=== PATIENT | female | born 1940 | race Caucasian/White ===

== ENCOUNTER 2017-05-07 05:16 | Day surgery (SDC) | payer MEDICARE, OTHER ==
[2017-05-06 16:02] LABS: HEMATOCRIT 40.6 % (36.0-48.0); MCH 32.9 pg (26.0-34.0); MCHC 34.5 g/dL (31.0-37.0); MCV 95.3 fL (80.0-100.0); MEAN PLATELET VOLUME 10.1 fL (7.4-10.4); RBC 4.26 10x6/uL (4.00-5.40); RDW 12.8 % (11.5-14.5); WBC 6.9 10x3/uL (4.8-10.8)
[~2017-05-07] VITALS: Ht 160 cm; Wt 59.0 kg
--- NOTE | ~2017-05-07 | OP ---
PATIENT NAME: ЮЛИЯ MARQUEZ MEDICAL RECORD: [id number] :41 LOCATION:D.OPS ADMISSION DATE: SURGEON: ALANA QUIROZ DPM DATE OF OPERATION: 05/07/2017 PREOPERATIVE DIAGNOSES: 1. Rupture of right anterior tibialis tendon. 2. Plantar plate rupture, right third metatarsophalangeal joint. 3. Hammertoe deformity, right fourth digit. POSTOPERATIVE DIAGNOSES: 1. Rupture of right anterior tibialis tendon. 2. Plantar plate rupture, right third metatarsophalangeal joint. 3. Hammertoe deformity, right fourth digit. PROCEDURES: 1. Repair of right anterior tibialis tendon. 2. Yulissa osteotomy, right third metatarsal. 3. Plantar plate repair, right third MPJ. 4. PIPJ fusion, right fourth digit. ANESTHESIA: Local with IV sedation utilizing lidocaine and Marcaine plain. The patient was also given a preoperative popliteal block per the anesthesia department. HEMOSTASIS: Right thigh tourniquet at 350 mmHg. PREOPERATIVE DETAILS: The patient was taken to the OR, placed on the operating table in a supine position. This was followed by induction of general anesthesia and infiltration of 5 cc of lidocaine and Marcaine in the saphenous nerve at the medial right ankle. The right extremity was then prepped and draped in usual aseptic technique followed by exsanguination of extremity and inflation of tourniquet. PROCEDURE NUMBER 1: Repair of right anterior tibialis tendon. A 15-blade was used to create an incision from the anterior ankle just superior to that distally coursing along the anterior tibialis tendon at its insertion at the medial cuneiform. The incision was deepened down through subcutaneous tissue. It was noted right away that there was a lot of bleeding in the subcutaneous space. The tendon sheath was pierced. There was noted to be significant bleeding in that area as well. The tendon sheath was opened up. The distal stump of the anterior tibialis was just proximal to the ankle joint. There was no distal stump noted. It was deemed necessary at this time to do a free graft from the split tendon graft from the existing anterior tibialis tendon. Therefore, harvested graft was taken from the anterior tibialis. It was then sutured to the end of the distal stump of the ruptured tendon. The distal aspect of the now repaired tendon was then prepared and using a tenodesis screw, was placed into the medial cuneiform from dorsal to plantar, noting excellent repair of the ends of the graft and the distal aspect of the ATF were sutured together using a Nelida type suture and augmented with 2-0 Vicryl. Once the repair was complete, it was noted to be very strong. The tendon sheath was then repaired. The subcutaneous tissue was reapproximated with 4-0 Rapide and the skin was closed with skin melissa. PROCEDURE NUMBER 2: Yulissa osteotomy, right third MPJ. A 15-blade was used to OPERATIVE REPORT [id number] ЮЛИЯ MARQUEZ create a 3-cm curvilinear incision over the dorsal aspect of the right third MPJ. The incision deepened down through subcutaneous tissue to the extensor longus tendon, which was split and freed exposing the third MPJ. A McGlamry scoop elevator was then used to free the plantar structures of the third MPJ. Sagittal saw was then used to create a Yulissa osteotomy from dorsal distal to plantar proximal, pushing the distal fragment proximally and temporarily fixating it to give us access to the plantar plate. PROCEDURE NUMBER 3 AND 4: Plantar plate repair, right third MPJ. Once visualized, there was noted to be some attenuation and stretching of the third MPJ plantar plate. The plantar plate was freed from the base of the proximal phalanx of the third digit. A scorpion passer was then used to pass FiberWire up through the plantar plate incorporating the flexor tendon. Two small drill holes were made in the base of proximal phalanx of the third digit. The FiberWire was then passed up through the drill holes. The traction was removed from the third metatarsal and base of proximal phalanx and the Yulissa osteotomy was fixated with 2 pop-off screws. This time with the digit held in plantar flexion, the FiberWire was passed up through the proximal phalanx and surgeon knots were tied allowing excellent positioning of the third digit. PROCEDURE NUMBER 5: PIPJ fusion, right fourth digit. A 15-blade was used to create a transverse incision on the PIPJ of the right fourth digit carried down to the extensor longus tendon, which was transected. The head of the proximal phalanx and the base of the middle phalanx were then delivered and resected with sagittal saw. Two small drill holes were made and the bone graft was placed in the drill hole in the proximal phalanx and the capital fragment was placed on top of the bone graft allowing excellent positioning of the digit. It was noted to be some contracture of the extensor longus tendon. A small Z lengthening was then performed in a percutaneous fashion. These wounds were closed with 4-0 Rapide in a simple interrupted technique. All incisions were covered with Dermabond. The incision on the third metatarsophalangeal joint was also repaired with 2-0 Vicryl and the deep tissue. The subcutaneous tissue was reapproximated with 4-0 Rapide and the skin was closed with 4-0 Rapide in a subcuticular technique followed by Dermabond, Adaptic, 4 x 4 and Conform. This was followed by a modified Stevens compression dressing with a posterior splint. It was placed with the foot in 90 degrees. Tourniquet was deflated. POSTOPERATIVE DETAILS: The patient tolerated the procedure well and left the OR with vital signs stable and vascular status at preop levels. The patient was transported to recovery per anesthesia in stable condition. TRANSINT:[id number] Voice Confirmation ID: [id number] DOCUMENT ID: [id number] ALANA QUIROZ DPM CC: [id number] DICTATION DATE: 05/07/17 1311 POWDER COMPOUNDER: 05/07/17 2155 [facility] 05/07/17 [id number] [place] [address]
[~2017-05-07 05:16] MED LIST: ASCORBIC ACID500 MG PO; ASPIRIN EC81 M1 PO; BIOTIN5 MG PO; CALCIUM 500 +1 EAC3 PO; CO Q-10100 MG PO; DITROPAN X5 MG/BOTTL PO; FLAXSEED OIL1000 MG PO; GLUCOSAMINE HC500 MG PO; MICARDIS80 MG PO; MULTI-DAY VITAM1 TAB PO; NAPROXEN SODIU220 M1 PO; NEXIUM40 MG PO; PRAVACHOL20 MG PO; RESTASIS EYE DR30 EA EACH EYE; ZETIA10 MG PO; [UNRECOGNIZED DRUG - MIXTURE] PO
[2017-05-07 09:21] VITALS: BP 117/72; Ht 160 cm; Wt 59.0 kg
--- NOTE | 2017-05-07 15:04 | NUR ---
1440 DISCHARGE INSTRUCTIONS GIVEN. PATIENT ALREADY RECEIVED PRESCRIPTIONS PRIOR TO SURGERY. ESCORTED OUT BY VOLUNTEER.
== END 2017-05-07 14:55 | disposition home or self-care (01) ==
LOC: D.OPS 05:16 → D.PAN 12:30 → D.OPS 12:40
PROVIDERS: Anesthesiology
DX: S96.811A Strain of other specified muscles and tendons at ankle and foot level, right foot, initial encounter (principal); M25.374 Other instability, right foot; M20.41 Other hammer toe(s) (acquired), right foot; Z01.812 Encounter for preprocedural laboratory examination